=== PATIENT | male | born 2000 | race Two or more races ===

== ENCOUNTER 2020-03-01 02:28 | Emergency (ER) | payer MEDICAID ==
[~2020-03-01] VITALS: Ht 165.1 cm; Wt 59.0 kg
[2020-03-01 04:22] LABS: Basophils # (auto) 0 10 ^3/uL (0-0.2); Basophils % (auto) 0.1 % (0.0-2.0); Eosinophils # (auto) 0 10 ^3/uL (0-0.8); Hematocrit 42.1 % (41.0-53.0); Hemoglobin 14.2 g/dL (13.5-17.5); Lymphocytes # (auto) 1.4 10 ^3/uL (0.4-5.4); Lymphocytes % (auto) 13.3 % (10.0-50.0); Mean Corpuscular Hgb Conc. 33.7 g/dL (32.0-36.0); Monocytes # (auto) 0.5 10 ^3/uL (0-1.3); Monocytes % (auto) 5.1 % (0.0-12.0); Neutrophils # (auto) 8.7 10 ^3/uL (1.6-8.6); Neutrophils % (auto) 81.5 % (37.0-80.0); Platelet Count (auto) 192 10^3/uL (140-450); Red Blood Cells 4.74 10^6/uL (4.5-5.90); Red Cell Distribution Width 12.2 % (11.8-14.3); White Blood Cell 10.7 10^3/uL (4.4-10.8)
[2020-03-01 04:43] LABS: Acetaminophen < 2.0 ug/mL (10-30); Salicylate < 1.7 mg/dL (2.8-20.0)
[2020-03-01 04:44] LABS: Albumin 3.9 g/dL (3.4-5.0); BUN/Creatinine Ratio 6.7; Calcium 8.3 mg/dL (8.5-10.1); Magnesium 1.9 mg/dL (1.6-2.6); Potassium 3.9 mmol/L (3.5-5.1)
[2020-03-01 04:47] LABS: Bilirubin, Total 0.2 mg/dL (0.2-1.0); Total Protein 7.3 g/dL (6.4-8.2)
[2020-03-01 05:52] VITALS: BP 133/79
[2020-03-01] MEDS ORDERED: THIAMINE HCL 100 MG TAB PO ONE (09:45)
== END 2020-03-01 12:30 | disposition home or self-care (01) ==
LOC: EDBD 02:28 → ER 02:37
DX: F10.129 Alcohol abuse with intoxication, unspecified (principal); R41.82 Altered mental status, unspecified; Y90.8 Blood alcohol level of 240 mg/100 ml or more
CPT/HCPCS: 36415; 70450; 72125; 80053; 80320; 80329; 83735; 85025